=== PATIENT | female | born 1965 | race African-American/Black ===

== ENCOUNTER 2018-07-15 21:13 | Emergency (ER) | payer OTHER ==
[~2018-07-15] VITALS: Ht 162.6 cm; Wt 90.0 kg
[2018-07-16] MEDS ORDERED: TETANUS, DIPHTHERIA, PERTUSSIS VAC/PF 0.5ML (>7YR OLD) IM ONE (01:45)
[2018-07-16 15:28] VITALS: BP 167/92
== END 2018-07-16 15:39 | disposition home or self-care (01) ==
LOC: ER 21:13
DX: S01.111A Laceration without foreign body of right eyelid and periocular area, initial encounter (principal); S00.531A Contusion of lip, initial encounter; S02.92XA Unspecified fracture of facial bones, initial encounter for closed fracture; F17.200 Nicotine dependence, unspecified, uncomplicated; I10 Essential (primary) hypertension; E11.9 Type 2 diabetes mellitus without complications; M47.892 Other spondylosis, cervical region; Z88.0 Allergy status to penicillin; Z88.5 Allergy status to narcotic agent; Y04.0XXA Assault by unarmed brawl or fight, initial encounter; Y93.89 Activity, other specified; Y92.89 Other specified places as the place of occurrence of the external cause
CPT/HCPCS: 12011; 70486; 82962; 90471; 90715; 99284

== ENCOUNTER 2018-09-28 16:36 | Emergency (ER) | payer OTHER, MEDICARE ==
[~2018-09-28] VITALS: Ht 162.6 cm; Wt 91.0 kg
[2018-09-28] MEDS ORDERED: LEVVL SQ (16:51)
[2018-09-28] MEDS ORDERED: AMLO5TAB88 PO (16:51)
[2018-09-28] MEDS ORDERED: LISI2.5T47 PO (16:51)
[2018-09-28] MEDS ORDERED: INSLIS SUBCUT (16:51)
[2018-09-28 19:32] VITALS: BP 150/88
== END 2018-09-28 19:35 | disposition home or self-care (01) ==
LOC: ER 17:04
DX: E11.65 Type 2 diabetes mellitus with hyperglycemia (principal); I10 Essential (primary) hypertension; F17.200 Nicotine dependence, unspecified, uncomplicated; Z88.0 Allergy status to penicillin; Z88.5 Allergy status to narcotic agent; Z79.4 Long term (current) use of insulin
CPT/HCPCS: 82962; 99282; 99283